=== PATIENT | female | born 1965 | race Caucasian/White ===

== ENCOUNTER 2018-10-05 14:50 | Emergency (ER) | payer MEDICAID ==
[~2018-10-05] VITALS: Ht 172.7 cm; Wt 83.0 kg
[~2018-10-05 14:50] MED LIST: NO HOME MEDS
[2018-10-05 14:58] VITALS: BP 129/94
[2018-10-05] MEDS ORDERED: AZIT250T83 PO (15:08)
== END 2018-10-05 15:21 | disposition home or self-care (01) ==
LOC: ER 14:51
DX: R05 Cough (principal); R09.89 Other specified symptoms and signs involving the circulatory and respiratory systems; G89.29 Other chronic pain; F15.90 Other stimulant use, unspecified, uncomplicated; Z88.8 Allergy status to other drugs, medicaments and biological substances; Z90.49 Acquired absence of other specified parts of digestive tract; Z98.51 Tubal ligation status; Z87.19 Personal history of other diseases of the digestive system
CPT/HCPCS: 99283

== ENCOUNTER 2018-12-11 13:34 | Emergency (ER) | payer MEDICAID ==
[~2018-12-11] VITALS: Ht 172.7 cm; Wt 89.6 kg
[2018-12-11 15:38] LABS: BASOPHILS # (AUTO) 0.1 X10'3 (0-0.2); BASOPHILS % (AUTO) 0.5 % (0-1); EOSINOPHILS # (AUTO) 0.5 X10'3 (0-0.9); EOSINOPHILS % (AUTO) 4.1 % (0-6); HEMATOCRIT 47.9 % (35.0-45.0); LYMPHOCYTES # (AUTO) 2.4 X10'3 (1.1-4.8); LYMPHOCYTES % (AUTO) 19.2 % (21-51); MEAN CORPUSCULAR HEMOGLOBIN 27.7 PG (27.0-31.0); MEAN CORPUSCULAR HGB CONC 33.4 g/dL (33.0-36.5); MEAN PLATELET VOLUME 8.9 FL (7.4-10.4); MONOCYTES # (AUTO) 0.6 X10'3 (0-0.9); MONOCYTES % (AUTO) 5.2 % (2-12); NEUTROPHILS # (AUTO) 8.9 X10'3 (1.8-7.7); PLATELET COUNT 290 X10'3 (140-440); RED BLOOD COUNT 5.77 X10'6 (4.20-5.60); RED CELL DISTRIBUTION WIDTH 16.6 % (11.5-14.5); WHITE BLOOD COUNT 12.6 X10'3 (4.5-11.0)
[2018-12-11 15:54] LABS: ALANINE AMINOTRANSFERASE 21 U/L (12-78); ALBUMIN 3.8 G/DL (3.4-5.0); ALBUMIN/GLOBULIN RATIO 0.8 (1.1-1.5); ALKALINE PHOSPHATASE 128 IU/L (46-116); ANION GAP 11 (8-16); ASPARTATE AMINO TRANSFERASE 15 U/L (10-37); BILIRUBIN,TOTAL 0.5 MG/DL (0.1-1.0); BLOOD UREA NITROGEN 17 MG/DL (7-18); BUN/CREATININE RATIO 22.1 (6.6-38.0); CALCIUM 9.4 MG/DL (8.5-10.1); CHLORIDE 101 MMOL/L (99-107); CREATININE 0.77 MG/DL (0.40-0.90); GLUCOSE 127 MG/DL (70-104); POTASSIUM 4.2 MMOL/L (3.5-5.1); SODIUM 136 MMOL/L (135-145); TOTAL CARBON DIOXIDE 24.1 MMOL/L (24-32); TOTAL PROTEIN 8.4 G/DL (6.4-8.2); eGFR 79 ML/MIN
[2018-12-11 15:55] LABS: CHOL/HDL RATIO 5.4 (0.00-4.99); CHOLESTEROL 222 MG/DL (0-200); ETHANOL < 0.010 GM/DL (0.0-0.010); HDL CHOLESTEROL 41 MG/DL (35-60); LDL CHOLESTEROL 157 MG/DL (50-100); LIPASE 797 U/L (73-393); TRIGLYCERIDES 163 MG/DL (20-135)
--- NOTE | 2018-12-11 16:45 | NUR ---
ASKED PT IF SHE HAS GIVEN A URINE SAMPLE PT STATES NO, GAVE PT WIPES AND URINE UP, EDUCATED PT ON HOW TO GIVE CLEAN CATCH SAMPLE AND PT AMBULATED TO BATHROOM WITH STEADY GAIT TO PROVIDER SAMPLE PER ORDERS.
[2018-12-11 17:00] LABS: CLARITY,URINE CLOUDY (Clear); COLOR,URINE YELLOW (Yellow); GLUCOSE, URINE NEGATIVE (Neg); KETONES,URINE NEGATIVE (Neg); LEUKOCYTE ESTERASE ,URINE NEGATIVE (Neg); NITRITES, URINE NEGATIVE (Neg); OCCULT BLOOD,URINE NEGATIVE (Neg); PH,URINE 5.5 (4.8-8.0); PROTEIN,URINE 100 mg/dl (Neg)
[2018-12-11 17:04] LABS: UA COLLECTION TYPE CLN CATCH MIDSTREAM
[2018-12-11 17:06] LABS: BACTERIA,URINE 1+ /HPF (Neg); MUCUS STRANDS MODERATE /LPF (Neg); RBC,URINE 0-2 /HPF (0-2); SQUAMOUS EPITHELIAL CELL,UR MANY /LPF (FEW); WBC,URINE 0-4 /HPF (0-4)
[2018-12-11] MEDS ORDERED: ringers solution, lactated 1000ml IV soln IV ONE (17:40)
[2018-12-11] MEDS ORDERED: morphine 4 MG/ML inj SYRINge IV ONE (17:40)
[2018-12-11] MEDS ORDERED: ondansetron/PF 4mg/2ml inj IV ONE (17:40)
--- NOTE | 2018-12-11 18:20 | NUR ---
PT TO CT
--- NOTE | 2018-12-11 19:11 | NUR ---
ENTERED ROOM TO CHECK EFFECTIVENESS OF ZOFRAN AND MORPHINE. PT CURRENTLY SLEEPING. NO DISTRESS NOTED. PT REMAINS ON MONITORING EQUIPMENT.
--- NOTE | 2018-12-11 19:26 | NUR ---
PT DRANK 200 ML OF WATER AND IS EATING AN APPLESAUCE
[2018-12-11] MEDS ORDERED: ONDA4TAB6 PO (19:43)
[2018-12-11] MEDS ORDERED: OXYC-658 PO (19:43)
[2018-12-11] MEDS ORDERED: acetaminophen 325mg tablet PO ONE (19:50)
[2018-12-11 19:59] VITALS: BP 185/116
== END 2018-12-11 20:01 | disposition home or self-care (01) ==
LOC: ER 13:34
DX: K85.90 Acute pancreatitis without necrosis or infection, unspecified (principal); F15.90 Other stimulant use, unspecified, uncomplicated; F17.200 Nicotine dependence, unspecified, uncomplicated; Z86.14 Personal history of Methicillin resistant Staphylococcus aureus infection; Z90.49 Acquired absence of other specified parts of digestive tract; Z98.51 Tubal ligation status; Z98.890 Other specified postprocedural states; Z88.5 Allergy status to narcotic agent; Z79.899 Other long term (current) drug therapy
CPT/HCPCS: 36415; 74176; 80053; 80061; 80320; 81001; 83690; 85025; 96374; 96375; 99284; J2270; J2405; J7120

== ENCOUNTER 2019-02-01 19:14 | Inpatient (IN) | payer MEDICAID | END 2019-02-12 12:20 | disposition home or self-care (01) | LOC: ED HOLD 02-02 01:11 → ER 19:14 → SUR 3N 02-02 02:36 → ORTHO 4S 02-02 21:25 | PROC: 0QB80ZZ Excision of Right Femoral Shaft, Open Approach (ICD-10-PCS; principal; 2019-02-04 07:54) | PROC: 0Y970ZZ Drainage of Right Femoral Region, Open Approach (ICD-10-PCS; 2019-02-04 07:54) | PROC: 3E0V329 Introduction of Other Anti-infective into Bones, Percutaneous Approach (ICD-10-PCS; 2019-02-04 07:54) | DX: A41.9 Sepsis, unspecified organism (principal); E43 Unspecified severe protein-calorie malnutrition; E87.2 Acidosis; M60.051 Infective myositis, right thigh; E87.1 Hypo-osmolality and hyponatremia; D62 Acute posthemorrhagic anemia; M86.651 Other chronic osteomyelitis, right thigh; R65.20 Severe sepsis without septic shock; M79.604 Pain in right leg; L02.415 Cutaneous abscess of right lower limb; F15.10 Other stimulant abuse, uncomplicated; E87.6 Hypokalemia ==

== ENCOUNTER 2022-09-07 20:21 | Emergency (ER) | payer MEDICAID ==
[~2022-09-07] VITALS: Ht 172.7 cm; Wt 77.3 kg
[~2022-09-07 20:21] MED LIST changes: +IBUP-1984 PO; +LACT1CAP26 PO; +LISI20TA28 PO; -NO HOME MEDS; +SENN-173 PO
[2022-09-07] MEDS ORDERED: normal saline 1000ML IV soln IVB ONE (21:00)
[2022-09-07] MEDS ORDERED: insulin regular, human 10 units/0.1 ml syringe SQ ONE (21:00)
[2022-09-07] MEDS ORDERED: insulin regular, human 10 units/0.1 ml syringe IV ONE (21:00)
[2022-09-07 21:05] VITALS: BP_SYST 172
[2022-09-07] MEDS ORDERED: INSU100I31 SQ ×3 (21:09→22:53)
[2022-09-07 21:30] LABS: BASOPHILS # (AUTO) 0.1 X10'3 (0-0.2); BASOPHILS % (AUTO) 1.1 % (0-1); EOSINOPHILS # (AUTO) 0.1 X10'3 (0-0.9); EOSINOPHILS % (AUTO) 1.4 % (0-6); HEMATOCRIT 49.9 % (35.0-45.0); LYMPHOCYTES # (AUTO) 1.8 X10'3 (1.1-4.8); LYMPHOCYTES % (AUTO) 20.8 % (21-51); MEAN CORPUSCULAR HEMOGLOBIN 26.8 PG (27.0-31.0); MEAN CORPUSCULAR HGB CONC 32.1 g/dL (33.0-36.5); MEAN CORPUSCULAR VOLUME 83.4 FL (78-98); MONOCYTES # (AUTO) 0.8 X10'3 (0-0.9); MONOCYTES % (AUTO) 9.9 % (2-12); NEUTROPHILS # (AUTO) 5.7 X10'3 (1.8-7.7); NEUTROPHILS % (AUTO) 66.8 % (42-75); PLATELET COUNT 292 X10'3 (140-440); RED BLOOD COUNT 5.98 X10'6 (4.20-5.60); RED CELL DISTRIBUTION WIDTH 18.5 % (11.5-14.5); WHITE BLOOD COUNT 8.5 X10'3 (4.5-11.0)
[2022-09-07 21:48] LABS: ALANINE AMINOTRANSFERASE 54 U/L (12-78); ALBUMIN 2.7 G/DL (3.4-5.0); ALBUMIN/GLOBULIN RATIO 0.7 (1.1-1.5); ALKALINE PHOSPHATASE 190 IU/L (46-116); ANION GAP 8 (8-16); ASPARTATE AMINO TRANSFERASE 42 U/L (10-37); BILIRUBIN,TOTAL 0.8 MG/DL (0.1-1.0); BLOOD UREA NITROGEN 21 MG/DL (7-18); BUN/CREATININE RATIO 17.6 (6.6-38.0); CALCIUM 8.8 MG/DL (8.5-10.1); CHLORIDE 95 MMOL/L (99-107); CREATININE 1.19 MG/DL (0.40-0.90); POTASSIUM 4.1 MMOL/L (3.5-5.1); SODIUM 128 MMOL/L (135-145); TOTAL CARBON DIOXIDE 25.5 MMOL/L (24-32); TOTAL PROTEIN 6.8 G/DL (6.4-8.2); eGFR 47 ML/MIN
[2022-09-07 21:49] LABS: GLUCOSE 490 MG/DL (70-104)
[2022-09-07] MEDS ORDERED: insulin NPH/REG insulin (NovoLIN 70/30) 10ml vial SQ STA (22:51)
[2022-09-07] MEDS ORDERED: NPH, human insulin isophane inj. SQ ONE (23:10)
[2022-09-07 23:20] VITALS: BP_DIAS 170
== END 2022-09-07 23:21 | disposition home or self-care (01) ==
LOC: ER 20:21
DX: E11.65 Type 2 diabetes mellitus with hyperglycemia (principal); I10 Essential (primary) hypertension; E11.9 Type 2 diabetes mellitus without complications; Z86.14 Personal history of Methicillin resistant Staphylococcus aureus infection; G89.29 Other chronic pain; F15.10 Other stimulant abuse, uncomplicated; Z88.6 Allergy status to analgesic agent; Z88.5 Allergy status to narcotic agent; Z79.899 Other long term (current) drug therapy; Z79.84 Long term (current) use of oral hypoglycemic drugs
CPT/HCPCS: 36415; 80053; 82948; 85025; 96361; 96372; 96374; 99284; J1815; J7030

== ENCOUNTER 2023-11-27 12:58 | Emergency (ER) | payer MEDICAID ==
[~2023-11-27] VITALS: Ht 167.6 cm; Wt 72.3 kg
[~2023-11-27 12:58] MED LIST changes: +INSU100I31 SQ; -SENN-173 PO; +SENN-362 PO
[2023-11-27] MEDS ORDERED: LIDOcaine 1% W/epiNEPHrine 1:100,000 20ml vial SQ ONE (13:45)
[2023-11-27] MEDS ORDERED: LIDOCAINE 1%/EPI 1:100,000 inj. 10 ML multi-dose vial SQ ONE (13:50)
[2023-11-27] MEDS ORDERED: SULF1TAB49 PO (14:10)
[2023-11-27 14:23] VITALS: BP 170/104; PULSE 92; RESP 18; TEMP 98.2; O2SAT 99
== END 2023-11-27 14:25 | disposition home or self-care (01) ==
LOC: ER 12:59
DX: K61.1 Rectal abscess (principal); E11.9 Type 2 diabetes mellitus without complications; I11.0 Hypertensive heart disease with heart failure; G89.29 Other chronic pain; Z86.14 Personal history of Methicillin resistant Staphylococcus aureus infection; Z90.49 Acquired absence of other specified parts of digestive tract; Z88.8 Allergy status to other drugs, medicaments and biological substances; Z88.5 Allergy status to narcotic agent; Z79.899 Other long term (current) drug therapy
CPT/HCPCS: 46040; 99284; A6266; A6449

== ENCOUNTER 2023-11-30 12:31 | Emergency (ER) | payer MEDICAID ==
[~2023-11-30] VITALS: Ht 172.7 cm; Wt 72.4 kg
[~2023-11-30 12:31] MED LIST changes: +SULF1TAB49 PO
[2023-11-30 12:40] VITALS: BP 161/109; PULSE 86; RESP 16; TEMP 98; O2SAT 97
== END 2023-11-30 13:16 | disposition home or self-care (01) ==
LOC: ER 12:31
DX: L02.31 Cutaneous abscess of buttock (principal); Z48.00 Encounter for change or removal of nonsurgical wound dressing; E11.9 Type 2 diabetes mellitus without complications; G89.29 Other chronic pain; Z86.14 Personal history of Methicillin resistant Staphylococcus aureus infection; I10 Essential (primary) hypertension; Z88.6 Allergy status to analgesic agent; Z79.899 Other long term (current) drug therapy; Z88.5 Allergy status to narcotic agent; Z79.84 Long term (current) use of oral hypoglycemic drugs
CPT/HCPCS: 99281